=== PATIENT | male | born 1960 ===

== ENCOUNTER 2016-06-04 10:41 | Emergency (ER) | payer BC ==
[2016-06-04 13:13] VITALS: BP 136/71
--- NOTE | 2016-06-04 13:24 | UC ---
Respiratory Complaint HPI - HPI Summary HPI Summary: 55 yo male with cough x 4 days First 2 days had fever and chills no CP or SOB no myalgias no n/v/d - History of Current Complaint Chief Complaint: UCRespiratory Stated Complaint: COUGH,CHEST CONGESTION Time Seen by Provider: 06/04/16 13:19 Hx Obtained From: Patient Onset/Duration: Gradual Onset Severity Initially: Mild Severity Currently: Moderate Pain Intensity: 1 Pain Scale Used: 0-10 Numeric Character: Cough: Nonproductive Aggravating Factors: Exertion - talking makes him cough Alleviating Factors: Nothing Associated Signs And Symptoms: Positive: Fever - resolved, Chills - Allergies/Home Medications Allergies/Adverse Reactions: Allergies Allergy/AdvReac Type Severity Reaction Status Date / Time ANESTHESIA - ?NAME Allergy Unknown LINDAWN Uncoded 06/04/16 13:13 Home Medications: Home Medications Dextromethorphan-Phenylephrine [Vicks Dayquil Cold & Flu 10-5-325 mg/15Ml] 1 liq PO BID PRN 06/04/16 [History Confirmed 06/04/16] Bbhnkybcdidig-Ixnmbjrgvo-[id number] [Nyquil Severe Cold/Flu 5-6.25-10-325 mg/15Ml] 1 liq PO QPM PRN 06/04/16 [History Confirmed 06/04/16] guaiFENesin LIQ* [Robitussin*] 5 mg PO Q4H PRN 06/04/16 [History Confirmed 06/04] PMH/Surg Hx/FS Hx/Imm Hx Previously Healthy: Yes - Surgical History Surgical History: Yes Surgery Procedure, Year, and Place: ARTHROSCOPIC KNEE SURGERY, LASIK EYE SURGERY (BOTH EYES), RIGHT CATARACT - Family History Known Family History: Positive: Hypertension Negative: Respiratory Disease - Social History Alcohol Use: Weekly Alcohol Amount: 8-9 BEERS/WEEK Substance Use Type: None Smoking Status (MU): Never Smoked Tobacco Review of Systems Constitutional: Negative Skin: Negative Eyes: Negative ENT: Negative Respiratory: Cough Cardiovascular: Negative Gastrointestinal: Negative Genitourinary: Negative Motor: Negative Neurovascular: Negative Musculoskeletal: Negative Neurological: Negative Psychological: Negative All Other Systems Reviewed And Are Negative: Yes Physical Exam Triage Information Reviewed: Yes Appearance: Well-Appearing, No Pain Distress, Well-Nourished Vital Signs: Initial Vital Signs Temp 97.9 F 06/04/16 13:08 Pulse 89 06/04/16 13:08 Resp 20 06/04/16 13:08 BP 136/71 06/04/16 13:08 Pulse Ox 97 06/04/16 13:08 Vital Signs Reviewed: Yes Eyes: Positive: Conjunctiva Clear ENT: Positive: Hearing grossly normal, TMs normal. Negative: Nasal congestion, Nasal drainage, Tonsillar swelling, Tonsillar exudate, Trismus, Muffled/hoarse voice Dental: Negative: Dental Fracture @, Abscess @ Neck: Positive: Supple, Nontender, No Lymphadenopathy Respiratory: Positive: Normal breath sounds, No respiratory distress, No accessory muscle use, Other: - wheeze with forced expiration Cardiovascular: Positive: RRR Neurological: Positive: Alert Psychological Exam: Normal Skin Exam: Normal UC Diagnostic Evaluation - Laboratory O2 Sat by Pulse Oximetry: 97 - normal/not hypoxic Respiratory Course/Dx - Differential Dx/Diagnosis Provider Diagnoses: acute bronchitis Discharge - Discharge Plan Condition: Stable Disposition: HOME Prescriptions: Amoxicillin (*) [Amoxicillin 875 MG (*)] 875 mg PO BID #20 tab Benzonatate CAP* [Tessalon CAP*] 100 - 200 mg PO TID PRN #28 cap PRN Reason: Cough Patient Education Materials: Acute Bronchitis (ED) Referrals: Alberto SALCIDO,Iraj Randall [Primary Care Provider] - 1 Week (if not better)
== END 2016-06-04 13:36 | disposition home or self-care (01) ==
LOC: UCCORT 10:41
DX: J20.9 Acute bronchitis, unspecified (principal); Z98.41 Cataract extraction status, right eye; Z88.4 Allergy status to anesthetic agent
CPT/HCPCS: 99212; G0463

== ENCOUNTER 2016-07-16 14:26 | Emergency (ER) | payer BC ==
[2016-07-16 15:12] VITALS: BP 142/88
--- NOTE | 2016-07-16 15:20 | UC ---
Lower Extremity/Ankle HPI - HPI Summary HPI Summary: complaint of left great toe pain that started after a washing machine landed on his foot this morning constant aching pain sometimes a sharp throbbing pain in his foot weigthbearing increases nothing lessenes the pain denies ankle pain took aspirin at 1300 today without muchh relief - History of Current Complaint Chief Complaint: UCLowerExtremity Stated Complaint: LEFT FOOT,GREAT TOE INJURY Time Seen by Provider: 07/16/16 15:07 Hx Obtained From: Patient - Allergies/Home Medications Allergies/Adverse Reactions: Allergies Allergy/AdvReac Type Severity Reaction Status Date / Time ANESTHESIA - ?NAME Allergy Unknown LINDAWN Uncoded 07/16/16 15:12 Home Medications: Home Medications Aspirin TAB* [Aspirin 325 MG TAB*] 2 tab PO ONCE 07/16/16 [History Confirmed ] PMH/Surg Hx/FS Hx/Imm Hx Previously Healthy: Yes - Surgical History Surgical History: Yes Surgery Procedure, Year, and Place: ARTHROSCOPIC KNEE SURGERY, LASIK EYE SURGERY (BOTH EYES), RIGHT CATARACT - Family History Known Family History: Positive: None, Hypertension Negative: Respiratory Disease - Social History Alcohol Use: Weekly Alcohol Amount: 8-9 BEERS/WEEK Substance Use Type: None Smoking Status (MU): Never Smoked Tobacco Review of Systems Constitutional: Negative Skin: Negative Eyes: Negative ENT: Negative Respiratory: Negative Cardiovascular: Negative Gastrointestinal: Negative Genitourinary: Negative Motor: Negative Neurovascular: Negative Musculoskeletal: Other: - left foot pain Neurological: Negative Psychological: Negative All Other Systems Reviewed And Are Negative: Yes Physical Exam Triage Information Reviewed: Yes Appearance: No Pain Distress, Well-Nourished Vital Signs: Initial Vital Signs Temp 98.2 F 07/16/16 15:07 Pulse 81 07/16/16 15:07 Resp 16 07/16/16 15:07 BP 142/88 07/16/16 15:07 Pulse Ox 98 07/16/16 15:07 Vital Signs Reviewed: Yes Eyes: Positive: Conjunctiva Clear ENT: Positive: Pharynx normal, TMs normal Neck: Positive: No Lymphadenopathy Respiratory: Positive: Lungs clear, Normal breath sounds, No respiratory distress, No accessory muscle use Cardiovascular: Positive: RRR, No Murmur, Pulses Normal Abdomen Description: Positive: Nontender, Soft Bowel Sounds: Positive: Present Musculoskeletal: Positive: Other: - LLE-edema and tenderness in left great toe and 1st,2nd metatarsal non tenderness in ankle. Full ROM dorsi/plantar flexion, inversion & eversion. [place] test negative. Neurological: Positive: Alert Psychological Exam: Normal Skin Exam: Normal Lower Extremity Course/Dx - Differential Dx/Diagnosis Differential Diagnosis/HQI/PQRI: Contusion, Fracture (Closed), Sprain, Strain Provider Diagnoses: non dipslaced comminuted fractue of the distal phalanx of the left great toe. elevated blood pressure Discharge - Discharge Plan Condition: Stable Disposition: HOME Patient Education Materials: Toe Fracture (ED) Referrals: Alberto SALCIDO,Iraj Randall [Primary Care Provider] - Segun Ross MD [Medical Doctor] - Additional Instructions: Please call medical collections specialist for an appointment. They will evaluate and determine your treatment. It is important to keep weight off of your fracture. Use rashid taping wear shoeuntil you are seen by orthopedics. Take acetaminophen or ibuprofen to control pain and reduce inflammation. Please review your discharge instructions. If your symptoms worsen call medical collections specialist or return to urgent care. Your blood pressure is elevated. Please contact your primary care provider within 1 day -4 weeks for further evaluation.
--- NOTE | 2016-07-16 16:07 | RAD ---
Indication: Left foot injury. 2 views left foot suggestive of a nondisplaced fracture at the proximal end of the distal phalanx of the great toe with mild comminution. No significant displacement is noted. The remainder of the foot is otherwise unremarkable. IMPRESSION: Likely nondisplaced comminuted fracture proximal end of the distal phalanx of the great toe.
== END 2016-07-16 16:45 | disposition home or self-care (01) ==
LOC: UCCORT 14:26
DX: S92.425A Nondisplaced fracture of distal phalanx of left great toe, initial encounter for closed fracture (principal); W23.0XXA Caught, crushed, jammed, or pinched between moving objects, initial encounter; Y93.9 Activity, unspecified; Y92.9 Unspecified place or not applicable
CPT/HCPCS: 99213; G0463